=== PATIENT | female | born 1935 | race Two or more races ===

== ENCOUNTER 2018-05-10 08:36 | Outpatient (CLI) | payer OTHER | END 2018-05-10 08:51 | disposition home or self-care (01) | LOC: MAMO-SONO 08:36 | DX: Z12.31 Encounter for screening mammogram for malignant neoplasm of breast (principal); Z87.898 Personal history of other specified conditions; N62 Hypertrophy of breast ==

== ENCOUNTER 2021-11-15 20:29 | Emergency (ER) | payer OTHER ==
[~2021-11-15] VITALS: Ht 165.1 cm; Wt 59.0 kg
[2021-11-15] MEDS ORDERED: COZAAR50 MG PO (20:52)
[2021-11-15] MEDS ORDERED: ACUPRIL (20:54)
[2021-11-16] MEDS ORDERED: RELAFEN DS1000 MG PO (00:43)
== END 2021-11-16 00:47 ==
LOC: ER 20:29
DX: G56.01 Carpal tunnel syndrome, right upper limb (principal); M46.02 Spinal enthesopathy, cervical region; M15.8 Other polyosteoarthritis; M47.892 Other spondylosis, cervical region